=== PATIENT | male | born 1970 | race Hispanic/Latino ===

== ENCOUNTER 2024-04-12 16:34 | Emergency (ER) | payer OTHER ==
[~2024-04-12] VITALS: Ht 167.6 cm; Wt 59.8 kg
[2024-04-12] MEDS ORDERED: MAPAP500 MG PO (17:13)
[2024-04-12] MEDS ORDERED: ondansetron HCL 4 MG/2 ML VIAL IV ONE (17:30)
[2024-04-12] MEDS ORDERED: fentaNYL citrate 100 MCG/2 ML VIAL IV ONE (17:30)
[2024-04-12] MEDS ORDERED: SODIUM CHLORIDE 0.9% 1,000 ML IV ONE (17:30)
[2024-04-12 17:43] LABS: HEMOGLOBIN 10.7 g/dL (12.0-18.0); MCH 27.1 (27-36); MCHC 32.3 g/dl (30-36); MCV 83.9 fl (81-99); PLATELET COUNT 989 K/uL (140-440); RBC 3.93 M/ul (4.3-5.7); RDW 15.6 (10.5-15.0)
[2024-04-12 17:57] LABS: ALBUMIN 3.2 g/dL (3.4-5.0); ALBUMIN/GLOBULIN RATIO 0.63 (1.1-2.4); ANION GAP 16.3 (7-21); BILIRUBIN, TOTAL 0.2 ng/dL (0.2-1.0); BUN/CREATININE RATIO 18.96 (6.0-28.6); CALCIUM 10.1 mg/dL (8.5-10.1); CREATININE, SERUM 1.16 mg/dL (0.70-1.30); POTASSIUM 4.3 mmol/L (3.5-5.1); PROTEIN, TOTAL 8.3 g/dL (6.4-8.2)
[2024-04-12 18:00] LABS: BASOPHILS, MANUAL DIFF 1; EOSINOPHILS, MANUAL DIFF 10; LYMPHOCYTES, MANUAL DIFF 21; MONOCYTES, MANUAL DIFF 6; NEUTROPHILS, MANUAL DIFF 62
[2024-04-12 18:48] LABS: BILIRUBIN, URINE NEGATIVE (negative); BLOOD/HGB, URINE NEGATIVE (Negative); KETONE, URINE NEGATIVE (Negative); LEUK ESTERASE, URINE NEGATIVE (negative); NITRITE, URINE NEGATIVE (negative); PH, URINE 5.5 (5-7)
[2024-04-12] MEDS ORDERED: HYDROmorphone HCL 1 MG/ML SYR IV ONE ×2 (19:00→21:45)
[2024-04-12] MEDS ORDERED: VANCOMYCIN HCL/D5W 1 GM/270 ML PIGGYBACK KIT IV ONE (19:45)
[2024-04-12] MEDS ORDERED: PIPERACILLIN/TAZOBACTAM 3.375 GM in DEXTROSE 5% 100 ML IV ONE (19:45)
[2024-04-12] MEDS ORDERED: DEXTROSE 5% 100 ML IV ONE (19:56)
[2024-04-12] MEDS ORDERED: PIPERACILLIN/TAZOBACTAM 3.375 GM VIAL ONE (19:56)
[2024-04-12] MEDS ORDERED: HYDROCODON-ACE1 EA10 PO (22:23)
[2024-04-12] MEDS ORDERED: LEVOFLOXACIN500 MG PO (22:23)
[2024-04-12] MEDS ORDERED: METRONIDAZOLE500 MG PO (22:23)
[2024-04-12] MEDS ORDERED: HYDROCODONE BIT/ACETAMINOPHEN 5/325 MG 1 TAB HOME.PACK PO PRN (22:30)
[2024-04-12 22:48] VITALS: BP 108/78
== END 2024-04-12 22:50 | disposition home or self-care (01) ==
LOC: ED 16:34
PROVIDERS: Emergency Medicine
DX: R10.9 Unspecified abdominal pain (principal); T81.40XA Infection following a procedure, unspecified, initial encounter
CPT/HCPCS: 36415; 74176; 80053; 81003; 83690; 85025; 96361; 96365; 96367; 96375; 96376; 99284-25; A9270; J1170; J2405; J2543; J3010; J3370; J7030

== ENCOUNTER 2024-06-11 15:31 | Emergency (ER) | payer OTHER ==
[~2024-06-11] VITALS: Ht 167.6 cm; Wt 54.4 kg
[~2024-06-11 15:31] MED LIST: HYDROCODON-ACE1 EA10 PO; LEVOFLOXACIN500 MG PO; MAPAP500 MG PO; METRONIDAZOLE500 MG PO
[2024-06-11 16:15] LABS: BASOPHILS 1.5 % (0-2); EOSINOPHILS 2.2 % (0-6); HEMATOCRIT 34.7 % (35.0-50.0); HEMOGLOBIN 11.8 g/dL (12.0-18.0); LYMPHOCYTES 23.3 % (24-44); MCH 25.7 (27-36); MCHC 33.9 g/dl (30-36); MONOCYTES 6.8 % (0-12); NEUTROPHILS 66.2 % (39-80); RBC 4.57 M/ul (4.3-5.7); RDW 15.4 (10.5-15.0)
[2024-06-11] MEDS ORDERED: ondansetron HCL 4 MG/2 ML VIAL IV ONE (16:15)
[2024-06-11] MEDS ORDERED: SODIUM CHLORIDE 0.9% 1,000 ML IV ONE (16:15)
[2024-06-11] MEDS ORDERED: HYDROmorphone HCL 1 MG/ML SYR IV PRN (16:15)
[2024-06-11 16:26] LABS: ALBUMIN 3.5 g/dL (3.4-5.0); ALBUMIN/GLOBULIN RATIO 0.6 (1.1-2.4); ANION GAP 13.2 (7-21); BILIRUBIN, TOTAL 0.5 ng/dL (0.2-1.0); BUN/CREATININE RATIO 9.67 (6.0-28.6); CALCIUM 10.4 mg/dL (8.5-10.1); CREATININE, SERUM 1.24 mg/dL (0.70-1.30); POTASSIUM 4.2 mmol/L (3.5-5.1); PROTEIN, TOTAL 9.3 g/dL (6.4-8.2)
[2024-06-11 16:27] LABS: PLATELET COUNT 1308 K/uL (140-440)
[2024-06-11] MEDS ORDERED: ONDANSETRON ODT8 MG PO (18:22)
[2024-06-11 18:24] VITALS: BP 112/81
== END 2024-06-11 18:27 | disposition home or self-care (01) ==
LOC: ED 15:31
PROVIDERS: Emergency Medicine
DX: C78.7 Secondary malignant neoplasm of liver and intrahepatic bile duct (principal); Z79.01 Long term (current) use of anticoagulants; Z79.899 Other long term (current) drug therapy
CPT/HCPCS: 36415; 74177; 80053; 83690; 85025; 85060; 96361; 96375; 96376; 99284-25; J2405; J7030; Q9967